=== PATIENT | female | born 1965 | race Two or more races ===

== ENCOUNTER 2017-02-27 05:40 | Inpatient (IN) | payer OTHER ==
[2017-02-27] MEDS ORDERED: LIDOCAINE 1% 2 ML VIAL ID PRN (05:58)
[2017-02-27] MEDS ORDERED: LACTATED RINGERS 1,000 ML IV SCH ×2 (05:58→09:45)
[2017-02-27] MEDS ORDERED: IV START KIT ONE (05:58)
[2017-02-27] MEDS ORDERED: CEFAZOLIN SODIUM 2 GRAM DUPLEX 2 G in Premix (D5W) 50 ml 1 EACH IV PRN (05:58)
[2017-02-27] MEDS ORDERED: CEFAZOLIN SODIUM 2 GRAM PREMIX 100 ML IV ONE (05:58)
[2017-02-27] MEDS ORDERED: MIDAZOLAM HCL 1 MG/ML 2ML VIAL ONE ×2 (06:43→08:17)
[2017-02-27] MEDS ORDERED: FENTANYL 250 MCG/5 ML AMP ONE (06:44)
[2017-02-27] MEDS ORDERED: ROCURONIUM BROMIDE 10 MG/ML DOSE IV ONE (06:45)
[2017-02-27] MEDS ORDERED: ONDANSETRON 4 MG/2ML 2 ML VIAL ONE (06:45)
[2017-02-27] MEDS ORDERED: PROPOFOL 20 ML IV ONE ×4 (06:45→08:58)
[2017-02-27] MEDS ORDERED: LIDOCAINE 2% (MULTI DOSE) 10 ML VIAL ONE (06:45)
[2017-02-27] MEDS ORDERED: MORPHINE SULFATE (DURAMORPH) 1 MG/ML 10ML AMP ONE (07:23)
[2017-02-27] MEDS ORDERED: DEXAMETHASONE SOD PHOS 4 MG/1 ML VIAL ONE (08:01)
[2017-02-27] MEDS ORDERED: ONDANSETRON 4 MG/2ML 2 ML VIAL IV PRN ×2 (09:33→10:15)
[2017-02-27] MEDS ORDERED: NALOXONE HCL 0.4 MG/ML VIAL IV PRN (09:33)
[2017-02-27] MEDS ORDERED: MEPERIDINE 25 MG/ML SYRINGE IV PRN (09:33)
[2017-02-27] MEDS ORDERED: PROMETHAZINE HCL 25 MG/ML VIAL IM PRN (09:33)
[2017-02-27] MEDS ORDERED: ATROPINE SULFATE 0.4 MG/1 ML VIAL IV PRN (09:33)
[2017-02-27] MEDS ORDERED: FENTANYL 100 MCG/2 ML VIAL ONE (09:46)
[2017-02-27] MEDS: FENTANYL 100 MCG/2 ML VIAL IV PRN ×2 (09:48→10:00)
[2017-02-27] MEDS ORDERED: HYDROMORPHONE HCL 1 MG/ML SYRINGE ONE ×2 (10:01→20:46)
[2017-02-27] MEDS ORDERED: SPINAL PROCEDURAL TRAY 1 EACH ONE (10:03)
[2017-02-27] MEDS: HYDROMORPHONE HCL 1 MG/ML SYRINGE IV PRN ×2 (10:04→10:10)
--- NOTE | 2017-02-27 10:13 | OP ---
Gerda Riggs DATE OF SURGERY: 02/27/2017 SURGEON: Luis M Viramontes M.D. HEALTHCARE MANAGEMENT SURGEON: Nikhil Mcdaniel M.D. PREOPERATIVE DIAGNOSES: 1. Menorrhagia. 2. Pelvic pain. 3. Bilateral adnexal masses. 4. POSTOPERATIVE DIAGNOSES:Menorrhagia. 5. Pelvic pain. 6. Bilateral adnexal masses. OPERATION: Total abdominal hysterectomy and bilateral salpingo-oophorectomy. ANESTHESIA: Spinal. FINDINGS: The uterus appeared to be of normal size. Both Fallopian tubes and ovaries were bound down in the cul-de-sac with very dense adhesions. The cul-de-sac was essentially obliterated with very dense scar tissue consistent with old endometriosis. TECHNICAL PROCEDURE: After induction of satisfactory spinal anesthesia the patient was placed in the supine position and prepped and draped in the usual fashion. The abdomen was entered in the usual fashion through a pfannenstiel type incision. A Gore retractor with a C-arm was placed and the bowel was packed away with dry laparotomy towels. The above findings were noted. The right round ligament was identified, doubly clamped with Pean clamps, divided, and suture ligated with 0 Vicryl. The vesicouterine peritoneum was incised from the right round ligament to the midline. The right ovary and Fallopian tube were then brought up using sharp and blunt dissection. The infundibulopelvic isolated, doubly clamped with Pean clamps, divided, and suture ligated with 0 Vicryl. The same procedure was repeated for the left adnexa. The bladder was pushed down to the midline using sharp and blunt dissection. The left uterine artery was skeletonized, doubly clamped with Pean clamps, divided, and suture ligated with 0 Vicryl. The same procedure was repeated on the right. The right cardinal ligament was clamped with a straight Darlington clamp, divided, and suture ligated with 0 Vicryl. The same procedure was repeated on the left. The cervix was then shelled out of the pubocervical fascia using heavy Ruiz scissors and the vaginal cuff entered at the right angle. The cuff was then incised circumferentially at this level using the Cleveland scissors this removing the uterus, Fallopian tubes, and ovaries. The angles of the cuff were tagged with long Allis forceps. The angles were then sutured ligated with 0 Vicryl. The cuff was then closed from front to back using interrupted figure of eight sutures of 0 Vicryl. When hemostasis was assured laparotomy towels and retractor were removed and the abdomen was closed. The peritoneum was closed with a continuous stitch of 2-0 Vicryl. The fascia was closed with a simple stitch of 0 Vicryl in the midline followed by a continuous loop suture of 0 PDS. Finally, the skin was closed with a subcuticular Stratafix suture. The wound was then approximated with skin glue and then Steri-Strips. The patient tolerated the procedure well and left the operating room awake and in good condition. There were no complications. Instrument, needle, and sponge counts were correct. Estimated blood loss was 500 mL. There was no blood replacement. Specimens removed were uterus, Fallopian tubes, and ovaries. JOB: [id number]
[2017-02-27] MEDS ORDERED: MAG HYDROX/AL HYDROX/SIMETH 30 ML UDCUP PO PRN (10:15)
[2017-02-27] MEDS ORDERED: BLISTEX LIPSTICK 1 EACH TP PRN (10:15)
[2017-02-27] MEDS ORDERED: ACETAMINOPHEN 325 MG TABLET PO PRN (10:15)
[2017-02-27] MEDS ORDERED: DOCUSATE SODIUM 100 MG CAPSULE PO PRN (10:15)
[2017-02-27] MEDS ORDERED: MENTHOL/CETYLPYRD 1 EACH LOZENGE PO PRN (10:15)
[2017-02-27] MEDS ORDERED: DIPHENHYDRAMINE HCL 50 MG/1 ML VIAL IV PRN (10:15)
[2017-02-27] MEDS ORDERED: MAGNESIUM HYDROXIDE/AL HYDROX 30 ML UDCUP PO PRN (10:15)
[2017-02-27] MEDS ORDERED: KETOROLAC TROMETHAMINE 30 MG/ML 1 ML VIAL IV SCH (11:00)
[2017-02-27] MEDS ORDERED: PUMP TUBING ONE (11:25)
[2017-02-27] MEDS: D5 1/4NS with 20 mEq KCL 1,000 ML IV SCH ×2 (11:31→19:19)
[2017-02-27] MEDS: KETOROLAC TROMETHAMINE 30 MG/ML 1 ML VIAL IV SCH ×2 (13:03→19:17)
[2017-02-27 13:27] VITALS: BMI 35.9
[2017-02-27] MEDS: HYDROMORPHONE HCL 2 MG/ML SYRINGE IV PRN (20:48)
[2017-02-28] MEDS: KETOROLAC TROMETHAMINE 30 MG/ML 1 ML VIAL IV SCH ×4 (00:52→18:28)
[2017-02-28] MEDS: D5 1/4NS with 20 mEq KCL 1,000 ML IV SCH ×4 (03:20→17:33)
[2017-02-28] MEDS ORDERED: HYDROMORPHONE HCL 1 MG/ML SYRINGE ONE (03:21)
[2017-02-28] MEDS: HYDROMORPHONE HCL 2 MG/ML SYRINGE IV PRN (03:25)
[2017-02-28 06:35] LABS: HEMATOCRIT 24.6 % (37.0-47.0); HEMOGLOBIN 7.3 gm/l (12.0-16.0)
--- NOTE | 2017-02-28 09:09 | PDOC43 ---
- Subjective Subjective: Reports Pain Tolerable, Reports Tolerating PO Clear, Denies Nausea, Denies Vomiting, Denies Fever - Objective Vital Signs Temperature 98.5 F 02/28/17 07:44 Pulse Rate 70 02/28/17 07:44 Respiratory Rate 16 02/28/17 08:00 Blood Pressure 105/55 02/28/17 07:44 O2 Saturation by Pulse Oximetry 96 02/28/17 07:44 Oxygen Delivery Method Room Air Oxygen Flow Rate 0 Laboratory 02/28/17 06:00 Active Medication Orders Category Date Time Status Acetaminophen [Tylenol] Med 02/27/17 10:15 Active 325 - 650 mg PO Q4H PRN D5 1/4NS with 20 mEq KCL 1,000 ml Med 02/27/17 10:15 Active IV 125 mls/hr Diphenhydramine HCl [Benadryl] Med 02/27/17 10:15 Active 25 mg IV Q6H PRN Docusate Sodium [Colace] Med 02/27/17 10:15 Active 100 mg PO BID PRN Hydromorphone HCl [Dilaudid] Med 02/27/17 10:57 Active 1 - 2 mg IV Q2H PRN Hydromorphone HCl [Dilaudid] Med 02/28/17 09:53 Active 1 - 2 mg IV Q2H PRN Ketorolac Tromethamine [Toradol] Med 02/27/17 13:00 Active 30 mg IV Q6H Lip [place] [Blistex] Med 02/27/17 10:15 Active 1 each TP PRN PRN Magnesium Hydroxide/Al Hydrox [Maalox] Med 02/27/17 10:15 Active 30 ml PO Q4H PRN Magnesium/Al Hydrox/Simeth [Maalox Plus] Med 02/27/17 10:15 Active 30 ml PO Q4H PRN Menthol/Cetylpyridinium [Cepacol] Med 02/27/17 10:15 Active 1 each PO PRN PRN Ondansetron 4 mg/2ml Vial [Zofran] Med 02/27/17 10:15 Active 4 mg IV Q4H PRN Sodium Chloride 0.9% Flush [Normal Saline 10ml Flush] Med 02/27/17 10:15 Active 10 - 50 ml IV PRN PRN Sodium Chloride 0.9% Flush [Normal Saline 10ml Flush] Med 02/27/17 17:00 Active 10 ml IV Q8HR Intake and Output 02/26/17 02/27/17 02/28/17 23:59 23:59 23:59 Intake Total 2773 8 Output Total 1025 450 Balance 1748 1608 General: Afebrile, No Acute Distress Abdomen: Soft, Non-Distended Wound DAIRY FARM WORKER: Dressing in Place, Dressing Clean/Dry/Intact, No Drainage Extremities: Full ROM Skin: Normal Color, Warm, Dry Neurological: Grossly Intact Psych/Mental Status: Normal Affect - Disposition: Disposition: Anticipate Home Tomorrow
[2017-02-28] MEDS ORDERED: HYDROMORPHONE HCL 1 MG/ML SYRINGE IV PRN (09:53)
[2017-02-28] MEDS ORDERED: HYDROMORPHONE HCL 0.5 MG/0.5 ML SYRINGE ONE (14:50)
[2017-02-28] MEDS ORDERED: HYDROMORPHONE HCL 0.5 MG/0.5 ML SYRINGE IM PRN (14:53)
[2017-02-28] MEDS: HYDROMORPHONE HCL 0.5 MG/0.5 ML SYRINGE IV PRN ×3 (15:06→23:03)
[2017-03-01] MEDS: D5 1/4NS with 20 mEq KCL 1,000 ML IV SCH ×2 (00:44→08:20)
[2017-03-01] MEDS: KETOROLAC TROMETHAMINE 30 MG/ML 1 ML VIAL IV SCH ×3 (01:39→12:47)
[2017-03-01 06:12] LABS: HEMATOCRIT 24.4 % (37.0-47.0)
[2017-03-01 07:51] VITALS: BP 125/68
[2017-03-01] MEDS ORDERED: ESTRADIOL 0.1 MG/24 HR TD ONE (08:54)
--- NOTE | 2017-03-01 09:05 | PDOC5 ---
Hospital Course: ADMIT DATE: 02/27/17 DISCHARGE DATE: 03/01/2017 ADMISSION DIAGNOSES: Menorrhagia, Anemia PROCEDURES: Total abdominal hysterectomy and bilateral salpingo-ooporectomy HISTORY OF PRESENT ILLNESS: 51 year old presenting with Heavy bleeding with menses and iron deficiency anemia which had been non-responsive to conservative management. HOSPITAL COURSE: The patient on the day of admission was taken to the operating room where she underwent a MILES and BSO. Her postoperative course was uncomplicated. By day of discharge the patient is ambulating, eating, voiding, and passing flatus without difficulty. Pain is controlled. - Objective General: Afebrile, No Acute Distress Abdomen: Soft, Non-Distended Wound TIME CHECKER: Well Approximated, No Drainage, No Erythema Skin: Normal Color, Warm, Dry, Intact Neurological: Grossly Intact Psych/Mental Status: Normal Affect - Discharge Diagnosis (1) Hypermenorrhea Qualifiers: Menorrahagia type: with regular cycle Qualifier Code: (N92.0) Excessive and frequent menstruation with regular cycle Status: Acute - Discharge Plan Condition: Good Disposition: Home Additional Instructions: Maintain pelvic rest. Report if you have heavy bleeding, worsening pain, or a temperature over 100. Prescriptions: Estradiol 0.1 mg/24 H (2X Wk) [Cleo 0.1 mg/24H (2Xwk)] 1 each TD Q4D #10 patch Docusate Sodium [COLACE 100 MG CAPSULE (SHF)] 100 mg PO DAILY PRN #30 cap PRN Reason: Constipation Ibuprofen [Motrin] 800 mg PO Q6H PRN #60 tablet PRN Reason: Pain Oxycodone HCl [ROXICODONE 5 MG IR TABLET (SHF)] 5 mg PO Q4H PRN #30 tab PRN Reason: Pain Follow-Up: Luis M Viramontes MD [Staff Physician] - In 2 weeks
--- NOTE | 2017-03-03 13:51 | SURGPATH ---
[facility] [address] [place] [id number] Patient Name: SRIDHAR CARTER MR#: [id number] : 1965 Gender: F Specimen #: [id number] Collected: 02/27/2017 Received: 03/02/2017 Reported: 03/03/2017 Submitting Phys: CARLOS PUENTE Copy To Phys: [facility] Clinical History / Pre-Operative Diagnosis: Vaginal bleeding Specimen Source / Surgical Procedure Performed: Uterus, tubes, ovaries Interpretation: UTERUS, BILATERAL FALLOPIAN TUBES AND OVARIES, EXCISION: - LEFT ADNEXA: ENDOMETRIOSIS - ENDOMETRIUM: PROLIFERATIVE PHASE - MYOMETRIUM: ADENOMYOSIS - RIGHT ADNEXA, CERVIX: NO PATHOLOGIC DIAGNOSIS Electronically Signed Out Denys Ryan M.D. Gross Description: The specimen is received in formalin labeled with the patient's name and "uterus, tubes, ovaries". The specimen consists of a 10.5 x 6.0 x 4.5 cm, 163 g uterus with attached cervix (3 cm with a narrow patent os). There are also bilateral attached adnexa. The uterine serosa is ragged with adhesions. The glistening pink-red soft endometrium is 0.1 cm. There is a mid anterior defect or scar. The myometrium is franco rubbery and faintly trabecular. The intact 3.5 x 3.2 x 2.5 cm, 18 g franco rubbery right ovary has a 3.5 cm smooth-lined translucent serous cyst. There is an associated 5.5 cm discontinuous fimbriated fallopian tube. The disrupted 10 g 3.5 x 3.0 x 2.0 cm left ovary has franco smooth serosa. Sectioning reveals an approximately 3.5 cm disrupted smooth-lined cyst without contents. There is an associated 6.0 by up to 1.0 cm fallopian tube without identifiable fimbria. There is also a 1.5 x 1.5 x 0.5 cm portion of soft tissue consistent with fimbria in the container. 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 A. posterior cervix and separate soft tissue (possible fimbria) B. anterior cervix C.-D. posterior uterus E. mid anterior defect F. anterior uterus G. right adnexa H. left adnexa LANCE Aguero Microscopic Description: Sections of cervix are unremarkable. Associated with one portion of fallopian tube is endometriosis. The endometrium has proliferative features. Adenomyosis is present deep within the myometrium. The right adnexa includes an unremarkable fallopian tube and a single ovarian cyst that lacks an epithelial lining. The left ovary has features consistent with an endometriotic cyst. 1: 33020 N80.8
== END 2017-03-01 16:40 | disposition home or self-care (01) | DRG 743 ==
LOC: OR 05:40 → MS 10:46
PROVIDERS: ADMIT Obstetrics & Gynecology; ATTEND Obstetrics & Gynecology
PROC: 0UT90ZZ Resection of Uterus, Open Approach (ICD-10-PCS; principal; 2017-02-27)
PROC: 0UTC0ZZ Resection of Cervix, Open Approach (ICD-10-PCS; 2017-02-27)
PROC: 0UT70ZZ Resection of Bilateral Fallopian Tubes, Open Approach (ICD-10-PCS; 2017-02-27)
PROC: 0UT20ZZ Resection of Bilateral Ovaries, Open Approach (ICD-10-PCS; 2017-02-27)
DX: N92.0 Excessive and frequent menstruation with regular cycle (principal); D64.9 Anemia, unspecified; Z01.812 Encounter for preprocedural laboratory examination

== ENCOUNTER 2017-03-09 13:45 | Inpatient (IN) | payer OTHER ==
[2017-03-09] MEDS ORDERED: ONDANSETRON 4 MG/2ML 2 ML VIAL ONE (14:22)
[2017-03-09] MEDS ORDERED: LACTATED RINGERS 1,000 ML ONE (14:23)
[2017-03-09] MEDS ORDERED: HYDROMORPHONE HCL 0.5 MG/0.5 ML SYRINGE ONE (14:23)
[2017-03-09 15:04] LABS: BASO % 0.2 % (0.2-1.0); HEMOGLOBIN 8.6 gm/l (12.0-16.0); IMM NEUT% 1.8 % (0-1)
[2017-03-09 15:07] LABS: ABSOLUTE NEUTROPHIL COUNT 35.8 K/mm3 (1.8-7.7); BASO # 0.1 K/mm3 (0.0-0.2); HEMATOCRIT 29.6 % (37.0-47.0); IMM NEUT # 0.7 K/mm3 (0-0.2); LYMPH % 2.6 % (15-45); MEAN CORPUSCULAR HEMOGLOBIN 23.2 pg (27.0-31.0); MEAN CORPUSCULAR HGB CONC 29.1 g/dl (33.0-37.0); MEAN PLATELET VOLUME 11.7 fl (7.4-10.4); MONO # 1.5 (0.0-0.8); MONO % 3.8 % (4-12); NEUT % 91.6 % (43-75); PLATELET COUNT 517 K/mm3 (130-400); RED CELL DISTRIBUTION WIDTH 16.7 % (11.5-14.5)
[2017-03-09 15:17] LABS: ALB/GLOB RATIO 0.8 (>1.0); CALCIUM 8.7 mg/dL (8.6-10.3); MAGNESIUM 2.2 mg/dL (1.9-2.7)
[2017-03-09] MEDS ORDERED: PIPERACILLIN-TAZO PREMIX BAG 50 ML IV ONE (15:17)
--- NOTE | 2017-03-09 15:19 | CT ---
ABD/PELVIS W/O CON COMPARISON: None HISTORY: Hysterectomy 02/27/2017. Weakness, vomiting, anorexia, and dizziness. Technique: Using a [employer] Aquilion [address] scanner, images were obtained from the diaphragm to the floor the pelvis. No intravenous contrast. An automated dose reduction technique was used to minimize patient radiation dose. Dose: CTDIvol (mGy): 24.60 DLP(mGycm): 1510.80 FINDINGS: Lung bases: Minimal dependent atelectasis in the right lung base. Inferior mediastinum and heart: Normal Liver: Normal Gallbladder: Normal Bile ducts: Normal. Pancreas: Normal Spleen: Normal Adrenal glands: Normal Kidneys: Normal Ureters: Normal Urinary bladder: Normal Uterus and adnexa: Status post hysterectomy. There are 2 loculated fluid collections with a possible connection, and the hysterectomy site, 9.5 x 3.8 cm, and in the mid mesentery, 7.1 x 6.5 cm, with indication on the right in the anterior pelvis, there is a possible third fluid collection, 5.9 x 2.7 cm there is a moderate amount of fluid around the liver and the spleen and in both paracolic gutters. Blood vessels: Normal. Lymph nodes: Normal Stomach: Normal Duodenum: Normal Small intestine: Mildly distended loops of ileum. Appendix: Not visible. Colon: Mildly distended transverse colon Abdominal wall and supporting musculature: Normal Bones: Normal. IMPRESSION: 1. 2-3 fluid collections,, suspicious for abscesses, seromas, or hematomas, in the hysterectomy site 9.5 x 3.8 cm, in the mid mesentery 7.1 x 6.5 cm, and in the anterior lower pelvis, 5.9 x 2.7 cm. 2. Moderate ascites in the paracolic gutters and around the liver and the spleen. The results were discussed with Rg Chaidez D.O. 03/09/2017 at 15:15
--- NOTE | 2017-03-09 15:22 | RAD ---
CHEST-AP BEDSIDE COMPARISON: CT abdomen and pelvis, 03/09/2017 HISTORY: Postop day 11 hysterectomy with lower chest and upper abdomen pain. FINDINGS: Views: Frontal chest. Lungs: Poor inspiration. Heart and vessels: Normal Trachea and bronchi: Normal Mediastinum and luz: Normal Costophrenic sulci: Normal Chest wall and bones: Normal Upper abdomen: Dilated loops of bowel. IMPRESSION: Dilated loops of bowel in the abdomen.
[2017-03-09] MEDS ORDERED: BLISTEX LIPSTICK 1 EACH TP PRN (15:48)
[2017-03-09] MEDS ORDERED: MENTHOL/CETYLPYRD 1 EACH LOZENGE PO PRN (15:48)
[2017-03-09] MEDS ORDERED: MAGNESIUM HYDROXIDE 30 ML UDCUP PO PRN (15:48)
[2017-03-09] MEDS ORDERED: BISACODYL 5 MG TABLET.EC PO PRN (15:48)
[2017-03-09] MEDS ORDERED: BISACODYL 10 MG SUP PR PRN (15:48)
[2017-03-09] MEDS ORDERED: SODIUM CHLORIDE 0.9% 100 ML IV PRN (15:48)
[2017-03-09 15:49] LABS: INR 1.23
[2017-03-09 15:50] LABS: TOTAL CELLS COUNTED 100
[2017-03-09 15:53] LABS: ANISOCYTOSIS 2+; BAND 2 % (0-10); BASOPHIL 0 % (0-1); EOSINOPHIL 0 % (1-3); HYPOCHROMIA 2+; LYMPHOCYTE 3 % (15-45); MONOCYTE 3 % (4-12); NEUTROPHILS 92 % (43-75); ORDER PATH REVIEW YES; PLATELET ESTIMATE INCREASED (NORMAL)
[2017-03-09] MEDS ORDERED: D5 1/2NS with 20 mEq KCL 1,000 ML IV SCH (16:00)
[2017-03-09] MEDS ORDERED: CLINDAMYCIN 900 MG PREMIX 900 MG in Premix (D5W) 50 ml 1 EACH IV SCH (16:30)
[2017-03-09] MEDS ORDERED: CLINDAMYCIN 900 MG PREMIX 50 ML IV ONE (16:36)
[2017-03-09] MEDS ORDERED: LACTATED RINGERS 3,000 ML ONE (16:36)
[2017-03-09] MEDS ORDERED: GENTAMICIN SULFATE 180 MG in SODIUM CHLORIDE 0.9% 100 ML IV SCH (17:00)
[2017-03-09] MEDS ORDERED: PUMP TUBING ONE (17:03)
--- NOTE | 2017-03-09 17:10 | RAD ---
CHEST-AP BEDSIDE COMPARISON: Chest one view, 03/09/2017 HISTORY: Central line placement. FINDINGS: Views: Frontal chest. Lungs: Normal. No pneumothorax. Support equipment: Left subclavian central line terminates at the junction of the left subclavian vein and superior vena cava level. Heart and vessels: Normal Trachea and bronchi: Normal Mediastinum and luz: Normal Costophrenic sulci: Normal Chest wall and bones: Normal Upper abdomen: Normal. IMPRESSION: Left subclavian central line terminates at the junction of the left subclavian vein and superior vena cava. No pneumothorax.
[2017-03-09] MEDS ORDERED: IOPAMIDOL 370 (76%) 100 ML VIAL IV ONE (17:42)
--- NOTE | 2017-03-09 18:18 | CT ---
Exam Type: ABD/PELVIS W/ CON Date and Time: 03/09/2017 4:21 PM Clinical information: Question of ureteral injury during recent hysterectomy 10 days ago. Comparison: Noncontrast CT earlier on the same day Technique: Contiguous axial 4 mm images were obtained from the lung bases through the pelvis after the uneventful IV administration of 100 cc of Isovue-370. Sagittal and coronal reformations with high resolution lung algorithm images were also obtained at this time. Delayed imaging at 10 minutes over the same area was performed at [address] DI: 20.8 DLP 2431.0 FINDINGS: Lung base : Dependent and atelectatic changes are noted at the lung bases. Visualized heart:There is no pericardial effusion. LIVER: Mild diffuse fatty infiltration without focal lesion. BILE DUCTS: normal caliber. GALLBLADDER: No calcified gallstones. Normal caliber wall. PANCREAS: within normal limits. SPLEEN: within normal limits. ADRENALS: within normal limits. KIDNEYS: within normal limits. Ureters: On delayed imaging, extravasation of contrast is present into the pelvic fluid collection from the right ureter. The left ureter continues and feeds the bladder normally. The right ureter after the pelvic collection does not appear to contain contrast within it. Stomach and small BOWEL: Submucosal enhancement is present throughout much of the mid to inferior small bowel loops secondary to the inflammatory process. Large bowel: Air and stool are noted within the large bowel. Appendix is normal. LYMPH NODES: No enlarged mesenteric lymph nodes. PERITONEUM: The scattered fluid throughout the abdomen and pelvis is again noted. Within the abdomen fluid is unremarkable and not organized. However within the pelvis areas of rim enhancement are present, predominantly just above the bladder. Findings are worrisome for infection though inflammation could give a similar appearance as the body tries to wall off the fluid. VESSELS: within normal limits RETROPERITONEUM: within normal limits. ABDOMINAL WALL: within normal limits. Bladder: Thickening is noted which may relate to the inflammatory process. BONES: within normal limits. IMPRESSION: Postoperative urinary leak from the right ureter causing urinoma within the abdomen and pelvis. Some areas of rim enhancement to the fluid are present in the pelvis though within the abdomen and this remains free. Other inflammatory changes as above including thickening of the urinary bladder wall. Findings were called to Dr. Viramontes at approximately 1812 hours on 03/09/2017.
[2017-03-09 18:21] VITALS: BMI 37.0
--- NOTE | 2017-03-09 19:02 | HP ---
SRIDHAR CARTER DATE OF SCHEDULED OPERATION: March 09, 2017 CHIEF COMPLAINT: The patient presents with the chief complaint of abdominal pain. HISTORY OF PRESENT ILLNESS: The patient is a 51-year-old female who underwent a total abdominal hysterectomy on February 27, 2017 because of abnormal bleeding. At the time of surgery she was found to have fairly significant pelvic adhesions and endometriosis. Over the past 24 hours, she has had worsening abdominal pain associated with anorexia, some nausea and vomiting. She also states this morning that she has been losing some urine vaginally which she does not appear to have any control over. She was seen in the emergency room this afternoon and a CT scan of the abdomen and pelvis revealed multiple areas of fluid collection in the pelvis and abdomen. She is admitted for further assessment and workup for possible vesicovaginal or other urinary tract fistula. PAST MEDICAL HISTORY: Well summarized on the record from her previous admission. CURRENT MEDICATIONS: Well summarized on the record from her previous admission. FAMILY HISTORY/SOCIAL HISTORY/REVIEW OF SYSTEMS: Are well summarized on the record from her previous admission. PHYSICAL EXAMINATION: GENERAL: The patient is a cooperative, well-developed, well-nourished, female who is in a moderate amount of distress because of feeling weak and having pain. HEENT: The head is symmetric. The pupils are equal in size, reactive to light and accommodation. The extraocular muscles are intact. Sclerae are non-icteric. Conjunctivae are pink. The ears, nose and throat are clear. NECK: Supple without thyromegaly. CHEST: Clear to auscultation. HEART: The rate is tachycardic. S1 and S2, are within normal limits. There is no S3, S4 or murmur. BREASTS: Are without mass. ABDOMEN: Is soft and somewhat distended. Bowel sounds are hypoactive. There is diffuse tenderness but no real rebound tenderness or guarding. PELVIC: The external genitalia, Bartholin's glands, urethra and Bunkie's glands are within normal limits. The vaginal vault contains approximately 10 mL of yellowish fluid. There is no obvious lesion at the apex of the cuff. Bimanual examination there are no masses palpable. EXTREMITIES: Are warm and dry without edema, clubbing or cyanosis. NEUROLOGIC: Grossly intact. LABORATORY DATA: A chemistry panel is unremarkable. CBC reveals that the patient has a hemoglobin of 8.6 g/L. She has a white cell count of 35,800 with a marked left shift. Urinalysis is currently not available. IMPRESSION: Possible urinary tract leak or fistula. PLAN: The patient will be admitted started on intravenous antibiotics. We will get a CT of the abdomen and pelvis with contrast to try to more clearly delineate the structure of the urinary tract. Further treatment will be based on the findings of this evaluation.
[2017-03-09 19:17] LABS: URINE BILIRUBIN NEGATIVE (NEGATIVE); URINE BLOOD NEGATIVE (NEGATIVE); URINE GLUCOSE (UA) 1+ (NEGATIVE); URINE LEUKOCYTE ESTERASE NEGATIVE (NEGATIVE); URINE NITRITE NEGATIVE (NEGATIVE); URINE PROTEIN 1+ (NEGATIVE); URINE UROBILINOGEN NORMAL (0-1 mg/dl)
[2017-03-09 19:18] LABS: URINE APPEARANCE CLEAR; URINE COLOR YELLOW
[2017-03-09 19:20] VITALS: BP 107/67
[2017-03-09 19:34] LABS: URINE BACTERIA FEW; URINE EPITHELIAL CELLS FEW /hpf; URINE MUCUS 2+
[2017-03-09] MEDS ORDERED: DOCUSATE SODIUM 100 MG CAPSULE PO SCH (21:00)
--- NOTE | 2017-03-10 13:34 | SURGPATH ---
[facility] [address] [place] [id number] Patient Name: SRIDHAR CARTER MR#: [id number] : 1965 Gender: F Specimen #: [id number] Collected: 03/09/2017 Received: 03/10/2017 Reported: 03/10/2017 Submitting Phys: ELÍAS ANNE Copy To Phys: [facility] Clinical History / Pre-Operative Diagnosis: LEUKOCYTOSIS Specimen Source / Surgical Procedure Performed: PERIPHERAL BLOOD SMEAR Interpretation: PERIPHERAL BLOOD SMEAR REVIEW: - NEUTROPHILIC LEUKOCYTOSIS Comment: The findings are suggestive of an inflammatory/infectious process. Please correlate clinically. No circulating blasts are seen. Electronically Signed Out Rg Martines M.D. Gross Description: RECEIVED 1 STAINED AND 1 UNSTAINED SLIDE ACCOMPANIED BY A CBC DATED 03/09/17 Microscopic Description: Automated counts show white count of 39,000 with hemoglobin 8.6 g and hematocrit 29.6% hairy red cell indices are low normal. Differential shows 91% neutrophils, 2% lymphocytes and platelets of 516,000. Absolute neutrophil count is 35.8. Erythrocytes are decreased in number and hypochromic. Granulocytes are predominantly mature with scattered bands. They show toxic granulation. Rare nucleated erythrocytes are present. Platelets are increased and morphologically normal. There are no circulating blasts. 1: 71861 D72.820
== END 2017-03-09 21:10 | disposition short-term general hospital (02) | DRG 700 ==
LOC: ED 13:45 → SDC 15:35 → MS 15:35
PROVIDERS: ADMIT Obstetrics & Gynecology; ATTEND Obstetrics & Gynecology
PROC: 05H633Z Insertion of Infusion Device into Left Subclavian Vein, Percutaneous Approach (ICD-10-PCS; principal; 2017-03-09)
PROC: B5171ZA Fluoroscopy of Left Subclavian Vein using Low Osmolar Contrast, Guidance (ICD-10-PCS; 2017-03-09)
DX: N36.8 Other specified disorders of urethra (principal); D72.828 Other elevated white blood cell count; N99.89 Other postprocedural complications and disorders of genitourinary system